=== PATIENT | female | born 1975 | race Caucasian/White ===

== ENCOUNTER 2024-01-31 14:06 | Emergency (ER) | payer OTHER ==
[~2024-01-31] VITALS: Ht 149.9 cm; Wt 95.3 kg
[2024-01-31 14:18] VITALS: BP 112/61; PULSE 85; RESP 18; TEMP 98; O2SAT 98
[2024-01-31] MEDS: HYDROcodone/APAP 7.5/325 MG 1 TAB PO ONE (14:59)
[2024-01-31] MEDS ORDERED: ACET-8905 PO (16:54)
[2024-01-31] MEDS ORDERED: IBUP-2213 PO (16:54)
[2024-01-31 17:35] VITALS: BP 112/61; PULSE 85; RESP 18; TEMP 98; O2SAT 98
== END 2024-01-31 17:33 | disposition home or self-care (01) ==
LOC: MED 14:06
DX: S80.02XA Contusion of left knee, initial encounter (principal); S31.030A Puncture wound without foreign body of lower back and pelvis without penetration into retroperitoneum, initial encounter; S09.90XA Unspecified injury of head, initial encounter; V03.99XA Pedestrian with other conveyance injured in collision with car, pick-up truck or van, unspecified whether traffic or nontraffic accident, initial encounter; Y93.89 Activity, other specified; Y92.89 Other specified places as the place of occurrence of the external cause; Y99.8 Other external cause status
CPT/HCPCS: 70450; 72220; 73562; 99284

== ENCOUNTER 2024-05-27 18:22 | Emergency (ER) | payer OTHER ==
[~2024-05-27] VITALS: Ht 149.9 cm; Wt 97.1 kg
[~2024-05-27 18:22] MED LIST: ACET-8905 PO; IBUP-2213 PO
[2024-05-27 18:49] VITALS: BP 120/57; PULSE 83; RESP 18; TEMP 97.7; O2SAT 96
[2024-05-27 21:58] LABS: APPEARANCE,URINE TURBID (CLEAR); BILIRUBIN,URINE NEGATIVE (NEGATIVE); BLOOD, URINE NEGATIVE (NEGATIVE); COLOR,URINE YELLOW (YELLOW); LEUKOCYTE ESTERASE ,URINE NEGATIVE (NEGATIVE); NITRITE, URINE NEGATIVE (NEGATIVE); PROTEIN,URINE TRACE (NEGATIVE); UGLUCOSE NEGATIVE (NEGATIVE)
[2024-05-27 22:43] LABS: AMPHETAMINE, URINE NEGATIVE ng/ml (NEG <=1000); BARBITURATE, URINE NEGATIVE ng/ml (NEG <=200); BENZODIAZEPINE, URINE NEGATIVE ng/mL (NEG <=200); CANNABINOID, URINE NEGATIVE ng/mL (NEG <=50); COCAINE, URINE NEGATIVE ng/mL (NEG <=300); OPIATE, URINE NEGATIVE ng/mL (NEG <=2000); PHENCYCLIDINE SCREEN,URINE NEGATIVE ng/mL (NEG <=25)
[2024-05-27 22:46] LABS: BASOPHILS # (AUTO) 0.1 K/uL (0.00-0.22); EOSINOPHILS # (AUTO) 0.2 K/uL (0-0.4); EOSINOPHILS % (AUTO) 2.6 % (0.0-4.0); HEMATOCRIT 33.6 % (36-48); HEMOGLOBIN 10.5 g/dL (12.0-16.0); LYMPHOCYTES # (AUTO) 3.1 K/uL (2.5-16.5); MEAN CORPUSCULAR HEMOGLOBIN 21 pg (27-31); MEAN CORPUSCULAR HGB CONC 31 g/dL (33-37); MEAN CORPUSCULAR VOLUME 65.7 fL (80-94); MONOCYTES # (AUTO) 0.6 K/uL (0.8-1.0); MONOCYTES % (AUTO) 6.5 % (1.7-9.3); NEUTROPHILS # (AUTO) 4.9 K/uL (1.8-7.7); NEUTROPHILS % (AUTO) 54.9 % (42.2-75.2); PLATELET COUNT (AUTO) 315 K/uL (140-450); RED BLOOD CELL COUNT(AUTO) 5.11 MIL/uL (4.20-5.40); RED CELL DISTRIBUTION WIDTH 21.5 % (11.6-13.7)
[2024-05-27 22:54] LABS: ANION GAP 11.6 (8-16); CALCIUM 8.6 mg/dL (8.5-10.1); CARBON DIOXIDE 27.9 mmol/L (21-32); CREATININE 0.5 mg/dL (0.6-1.3); POTASSIUM 3.5 mmol/L (3.5-5.1)
[2024-05-27 23:36] VITALS: BP 122/60; PULSE 84; RESP 18; TEMP 98; O2SAT 96
== END 2024-05-27 23:36 | disposition home or self-care (01) ==
LOC: MED 18:22
DX: R82.998 Other abnormal findings in urine (principal); R22.43 Localized swelling, mass and lump, lower limb, bilateral; M54.50 Low back pain, unspecified; Z79.1 Long term (current) use of non-steroidal anti-inflammatories (NSAID)
CPT/HCPCS: 36415; 80048; 80305; 81003; 83880; 85025; 99283